=== PATIENT | male | born 1960 | race Caucasian/White ===

== ENCOUNTER 2016-12-12 15:41 | Inpatient (IN) ==
--- NOTE | 2016-12-12 16:07 | Emergency Department Note ---
Disposition Clinical Impression: Cellulitis Qualifiers: Site of cellulitis: extremity Site of cellulitis of extremity: lower extremity Laterality: left Qualified Code(s): L03.116 - Cellulitis of left lower limb Disposition: Admitted As Inpatient Condition: Good Skin/Abscess/FB HPI Chief complaint: ED Extremity Injury, Lower Stated complaint: stepped on a nail 10 days ago Source: patient Mode of arrival: EMS Limitations: no limitations Nursing Notes Reviewed: Yes Vital Signs Reviewed: Yes HPI Narrative: Patient presents to the ED complaining of worsening pain, redness and swelling to his left foot. States he stepped on a nail approximately 10 days ago while walking barefoot. He pulled the nail out but did not seek medical care until several days later on December 07 when he was seen here. He was diagnosed with cellulitis at that time after an x-ray was performed that show some soft tissue gas. He was discharged home with Augmentin, clindamycin and tramadol. States he has been taking the antibiotics and has taken all of his pain medication but is still having significant pain with increased redness and swelling to the foot. He states the red blister on his foot has now turned black. It has not been draining. He denies any fever or chills. He has not followed up yet with his PCP. He is a diabetic but has not recently checked his sugars. Home Medications Medication Instructions Recorded Confirmed Insulin NPH/REG 70/30 1 SQ DAILY 02/02/16 Metoprolol [Lopressor] 50 mg PO BID 02/02/16 02/02/16 Lisinopril [Zestril] 10 mg PO DAILY 12/07/16 12/07/16 Ranitidine HCl [Zantac] 150 mg PO 12/07/16 Previous Rx's Medication Instructions Recorded Amoxicillin/Clavulanate [Augmentin] 875 mg PO BIDWM #20 tablet 12/07/16 Clindamycin HCl 300 mg PO Q6H #40 capsule 12/07/16 Tramadol HCl [Ultram] 50 mg PO QID #8 tab 12/07/16 Allergies Allergy/AdvReac Type Severity Reaction Status Date / Time No Known Allergies Allergy Verified 02/02/16 15:30 Constitutional: Denies: fever, chills, weakness, weight change Eyes: Denies: eye pain, eye discharge, vision change ENT ED: Denies: ear pain, throat pain, dental pain, hearing loss, epistaxis, congestion, dysphagia Cardiovascular: Denies: chest pain, palpitations, dyspnea on exertion, edema, syncope Respiratory: Denies: cough, dyspnea, wheezes, hemoptysis, stridor Gastrointestinal: Denies: abdominal pain, nausea, vomiting, diarrhea, constipation, hematemesis, melena, hematochezia Genitourinary: Denies: urgency, dysuria, frequency, hematuria Musculoskeletal: Denies: back pain, neck pain, arthralgia, myalgia Integumentary: Reports: as per HPI. Denies: rash, abrasion, lesions Neurological: Denies: headache, weakness, numbness, paresthesias, confusion, abnormal gait, vertigo Psychiatric: Denies: anxiety, depression, suicidal thoughts, homicidal thoughts , auditory hallucinations, visual hallucinations Endocrine: Denies: fatigue Hematological/Lymphatic: Denies: easy bleeding, easy bruising Allergic/Immunologic: Denies: facial swelling, urticaria Past Medical History - Past Medical History Medical history: Reports: COPD, diabetes, hypertension Psychiatric history: Reports: no psych history - Social History Smoking Status: Current every day smoker Smokeless Tobacco Status: No (UNKNOWN) Alcohol use: Reports: occasionally Drug use: Reports: none Physical Exam - General Limitations: no limitations General appearance: alert, in no apparent distress - Head Head exam: atraumatic, normocephalic, normal inspection - Eye Eye exam: Present: normal appearance, PERRL, EOMI - Chest Chest inspection: Present: normal inspection, symmetric chest wall rise - Respiratory Respiratory exam: Present: normal lung sounds bilaterally - Cardiovascular Cardiovascular exam: Present: regular rate, normal rhythm, normal heart sounds - Expanded Lower Extremity Exam Knee exam: Present: normal inspection, full ROM Lower leg exam: Present: full ROM, erythema (streaking up left lower leg) Ankle exam: Present: full ROM Foot/toe exam: Present: full ROM, tenderness (lateral metatarsal area at site of lesion), swelling (mild), erythema (greatest on lateral aspect), other (5x2 cm area of blackened blister with overlying peeling skin and marginal erythema, no drainage). Absent: laceration, ecchymosis 1 - black blister, erythema, warmth, swelling Neurovascular/Tendon exam: Absent: motor deficit, sensory deficit, tendon deficit - Neurological Exam Neurological exam: Present: alert, oriented X3 - Psychiatric Psychiatric exam: Present: normal affect, normal mood - Skin Skin exam: Present: warm, dry, intact, normal color Course Course Narrative: Patient presents to ED with persistent pain and worsening swelling, redness and warmth his left foot where he had a puncture wound from a nail approximately 10 days ago. He has been on oral antibiotics with worsening symptoms. No fever or chills. Based on previously documented examine at his last visit he has increased streaking erythema. X-ray was obtained which again showed soft tissue gas but no sign of osteomyelitis. CBC shows leukocytosis with left shift. He is afebrile. Blood cultures were drawn and patient was started on IV antibiotics in the ED. Given that he has not improved with outpatient oral antibiotics he will require admission for IV antibiotics and continued management. He is also diabetic which puts him at risk for worsening infection. Spoke to the patient regarding the need for admission and he is in agreement. The hospitalist on-call, Dr. Adan, was contacted and agreed to accept the patient. Vital Signs Temperature 97.2 F L 12/12/16 15:43 Pulse Rate 90 12/12/16 15:43 Respiratory Rate 16 12/12/16 15:43 Blood Pressure 193/88 12/12/16 15:43 O2 Sat by Pulse Oximetry 99 12/12/16 15:43 Temperature 97.8 F 12/12/16 19:44 Pulse Rate 78 12/12/16 19:44 Respiratory Rate 20 12/12/16 19:44 Blood Pressure 184/81 12/12/16 19:44 O2 Sat by Pulse Oximetry 100 12/12/16 19:44 Oxygen Delivery Oxygen Delivery Room Air Skin/Abscess/Foreign Body - Differential Diagnosis Likely: abscess of skin or subcutaneous tissue, cellulitis - Medical Records Medical records reviewed: Yes I reviewed the patient's medical records. - Lab Data Lab results reviewed: Yes I reviewed the patient's lab results. Result diagrams: 12/12/16 16:50 12/12/16 16:45 Lab Results 12/12/16 12/12/16 Range/Units 16:45 16:50 WBC 14.1 H (4.3-11.1) K/mcL RBC 3.87 L (4.19-5.50) M/mcL Hgb 13.3 (12.9-16.9) g/dL Hct 37.4 L (37.5-50.1) % MCV 96.6 (83.0-100.0) fL MCH 34.4 H (28.0-33.3) pg MCHC 35.6 H (31.6-35.5) g/dL RDW 12.1 (11.5-14.5) % Plt Count 377 (140-400) K/mcL MPV 9.6 (9.4-12.4) fL Immature Gran % 3.9 (0-4) % Seg Neutrophils % 65.7 % Lymphocytes % 15.6 % Monocytes % 11.2 % Eosinophils % 2.9 % Basophils % 0.7 % Neutrophils # 9.3 H (1.6-8.9) K/mcL Lymphocytes # 2.2 (0.6-4.6) K/mcL Monocytes # 1.6 H (0.0-1.3) K/mcL Eosinophils # 0.4 (0.0-0.6) K/mcL Basophils # 0.1 (0.0-0.2) K/mcL Sodium 133 L (136-145) mEq/L Potassium 3.4 L (3.5-4.5) mEq/L Chloride 99 (98-109) mEq/L Carbon Dioxide 19 (19-29) mEq/L BUN 32 H (8-26) mg/dL Creatinine 1.45 H (0.72-1.25) mg/dL Est GFR ( Amer) > 60 (> 60) Est GFR (Non-Af Amer) 50 L (> 60) BUN/Creatinine Ratio 22 (6-26) Glucose 358 H (70-99) mg/dL Calculated Osmolality 297 (280-300) Calcium 9.6 (8.6-10.8) mg/dL - Radiology Data Radiology results reviewed: Yes I reviewed the patient's radiology results. ITS Impressions Foot X-Ray 12/12/16 16:34 IMPRESSION: Collection of soft tissue gas lateral to the 5th MTP joint redemonstrated. No radiographic evidence of osteomyelitis. D/ / Michael Wheeler MD / Michael Wheeler MD Interpreting Provider: Michael Wheeler MD
[2016-12-12] MEDS ORDERED: traMADol 50 MG TABLET PO ONE (16:33)
[2016-12-12 16:55] LABS: Basophils # 0.1 K/mcL (0.0-0.2); Basophils % 0.7 %; Eosinophils # 0.4 K/mcL (0.0-0.6); Eosinophils % 2.9 %; Hematocrit 37.4 % (37.5-50.1); Hemoglobin 13.3 g/dL (12.9-16.9); Immature Granulocytes % 3.9 % (0-4); Lymphocytes # 2.2 K/mcL (0.6-4.6); Lymphocytes % 15.6 %; Mean Corpuscular HGB Conc 35.6 g/dL (31.6-35.5); Mean Corpuscular Hemoglobin 34.4 pg (28.0-33.3); Mean Corpuscular Volume 96.6 fL (83.0-100.0); Mean Platelet Volume 9.6 fL (9.4-12.4); Monocytes # 1.6 K/mcL (0.0-1.3); Monocytes % 11.2 %; Platelet Count 377 K/mcL (140-400); Red Blood Count 3.87 M/mcL (4.19-5.50); Red Cell Distribution Width 12.1 % (11.5-14.5); Segmented Neutrophils % 65.7 %
[2016-12-12 16:57] LABS: Neutrophils # 9.3 K/mcL (1.6-8.9)
[2016-12-12] MEDS ORDERED: Clindamycin 600 MG/50 ML 600 MG/50 ML IV.SOLN IVPB ONE (17:48)
[2016-12-12 18:09] LABS: BUN/Creatinine Ratio 22 (6-26); Blood Urea Nitrogen 32 mg/dL (8-26); Calcium 9.6 mg/dL (8.6-10.8); Carbon Dioxide 19 mEq/L (19-29); Chloride 99 mEq/L (98-109); Glucose 358 mg/dL (70-99); Osmolality,Calculated 297 (280-300); Potassium 3.4 mEq/L (3.5-4.5); Sodium 133 mEq/L (136-145); eGFR For African Americans > 60 (> 60); eGFR For Non-African Americans 50 (> 60)
[2016-12-12] MEDS ORDERED: Naloxone 0.4 MG/ML INJ IVP PRN ×2 (19:12→19:29)
[2016-12-12] MEDS ORDERED: traMADol 50 MG TABLET PO SCH (21:00)
[2016-12-12] MEDS ORDERED: traMADol 50 MG TABLET PO PRN ×2 (23:23→23:28)
[2016-12-12] MEDS: Clindamycin 600 MG/50 ML 600 MG/50 ML IV.SOLN IVPB SCH (23:46)
[2016-12-13] MEDS ORDERED: Clindamycin 600 MG/50 ML 600 MG/50 ML IV.SOLN IVPB SCH (02:30)
[2016-12-13] MEDS: Clindamycin 600 MG/50 ML 600 MG/50 ML IV.SOLN IVPB SCH ×2 (08:21→16:54)
[2016-12-13] MEDS ORDERED: Famotidine 20 MG TABLET PO SCH (09:00)
[2016-12-13] MEDS ORDERED: Insulin NPH/REG 70/30 100 UNIT/ML (x5UNIT) SQ SCH ×4 (09:00→18:00)
--- NOTE | 2016-12-13 12:04 | Internal Med History&Physical ---
Date of Encounter: 12/13/16 Time of Encounter: 11:30 Assessment and Plan (1) Cellulitis Current visit: Yes Status: Acute He has been started on IV clindamycin. I will order CT of the foot to evaluate for abscess. Qualifiers: Site of cellulitis: extremity Site of cellulitis of extremity: lower extremity Laterality: left Qualified Code(s): L03.116 - Cellulitis of left lower limb (2) Azotemia Current visit: Yes Status: Acute Creatinine was normal in 2014. We will hold lisinopril and give IV fluids and recheck labs in a.m. (3) Hypokalemia Current visit: Yes Status: Acute We will give supplemental potassium and recheck labs in a.m. (4) Weight loss Current visit: Yes Status: Acute We will check TSH and order CT of chest abdomen and pelvis. (5) COPD (chronic obstructive pulmonary disease) Current visit: Yes Status: Acute We will give NicoDerm patch and check room air oximetry prior to discharge. Qualifiers: COPD type: unspecified COPD Qualified Code(s): J44.9 - Chronic obstructive pulmonary disease, unspecified Internal Medicine - H&P: HPI Chief complaint: Left foot injury Admitted From: Home Plans for Post Hospital Care: Home History of present illness: Mr. Dahl is a 56 year old male who came to emergency room stating he stepped on nail approximately 10-12 days earlier while walking barefoot in the yard. He came to emergency room December 07 for worsening pain and redness. He was given amoxicillin and clindamycin antibiotics and Ultram for pain. He did not feel improved so came back to emergency room on December 12. He was found to have leukocytosis with left shift and increasing redness of the left foot. He was admitted to Medr floor for ongoing care needs. Past Med Surg Social Fam HX - Past Medical History Medical history: COPD, diabetes, hypertension Psychiatric history: no psych history - Social History Smoking Status: Current every day smoker Packs per day: 1 Smokeless Tobacco Status: No (UNKNOWN) Alcohol use: occasionally Drug use: none Internal Medicine - H&P: Meds Insulin NPH/REG 70/30 1 SQ DAILY 02/02/16 [History] Metoprolol [Lopressor] 50 mg PO BID 02/02/16 [History] Amoxicillin/Clavulanate [Augmentin] 875 mg PO BIDWM #20 tablet 12/07/16 [Rx] Clindamycin HCl 300 mg PO Q6H #40 capsule 12/07/16 [Rx] Lisinopril [Zestril] 10 mg PO DAILY 12/07/16 [History] Ranitidine HCl [Zantac] 150 mg PO 12/07/16 [History] Tramadol HCl [Ultram] 50 mg PO QID #8 tab 12/07/16 [Rx] Allergies No Known Allergies Allergy (Verified 02/02/16 15:30) All Systems PM: A 10-system review of systems was performed and is negative for pertinent findings except as documented above in the HPI. Review of systems: Gen.: He states his weight has decreased from 152 pounds to 140 pounds in the past year, unintentional. Cardiovascular: He has history of hypertension but denies MS heart failure angina DVT or pulmonary embolus Respiratory: He has smoked since age 13 up to 2 packs per day. He had PFTs at [facility] approximately 2013 and was told he had COPD. He does not wear home oxygen. GI: He reports he has had diarrhea almost daily for 2 years. He denies melena or hematochezia. He denies disorders of his liver gallbladder or exocrine pancreas. He denies vomiting. : He has had kidney stones in the past. He was unaware he had azotemia on emergency room labs with creatinine 1.45 and estimated GFR 50. His creatinine was 1.16 on 12/17/2014. Neurologic: He denies large distribution strokes or seizures Endocrine: He was diagnosed with diabetes at age 6. He has been on insulin since then. He denies thyroid disease or hyperlipidemia Hematology/oncology: Denies blood disorders cancers or anemia Psychiatric: He takes depression medication does not know the name. He denies anxiety or other mental health issues Musk skeletal: He has DJD but denies gout or other bone joint or muscle disorders. - Constitutional Vitals: Temp Pulse Resp BP Pulse Ox 97.8 F 81 18 194/88 100 12/13/16 06:49 12/13/16 06:49 12/13/16 06:49 12/13/16 06:49 12/13/16 08:53 Exam: Gen.: He is a well-developed lean male lying in bed who appears in no acute distress HEENT: Head is atraumatic normocephalic. Eyes: EOMI. There is no scleral icterus. Mouth: Mucosa is moist. Neck: Supple and nontender. There is no thyromegaly or adenopathy noted. Heart: Regular without murmurs gallops or ectopics Lungs: No wheezes or crackles are heard. Abdomen: Soft and nontender. No masses or guarding are noted. Extremities: There is no cyanosis edema or clubbing noted. Dorsalis pedis and posttibial pulses are 1-2 over 2 bilaterally. The left foot shows erythema of the lateral half with lymphangitic streaking extending approximately 15 cm into the lower leg. There is an area of eschar approximately 2 cm maximum diameter in a shallow ulcer at the base of the left fifth toe. There is tenderness on movement of the forefoot. Neurologic: Mental status: He is talkative and a good historian. Cranial nerves : Smile is symmetric. Forehead wrinkles bilaterally. Tongue protrudes midline. EOMI. Motor: There is no pronator drift. Cerebellar: Finger to nose is intact bilaterally. Skin: Warm and dry Internal Med - H&P Results - Labs CBC & Chem 7: 12/12/16 16:50 12/12/16 16:45 - VTE Reasons for not Prescribing Prophylaxis: Treatment not Indicated - Low risk for VTE
[2016-12-13] MEDS: 0.45 % Sodium Chloride w/KCl 20 MEQ/1,000 ML MLS IVC SCH (12:15)
[2016-12-13] MEDS: Nicotine 21 MG PATCH.TD24 TD SCH (12:32)
[2016-12-13] MEDS: amLODIPine 5 MG TABLET PO SCH (12:33)
[2016-12-13] MEDS: *HR* HYDROcodone/Acet 5/325 mg TABLET PO PRN ×2 (13:36→19:32)
[2016-12-13] MEDS: Insulin LISPRO 300 UNITS/3 ML VIAL SQ SCH ×3 (14:10→19:36)
[2016-12-14] MEDS: *HR* HYDROcodone/Acet 5/325 mg TABLET PO PRN ×6 (00:49→23:30)
[2016-12-14] MEDS: 0.45 % Sodium Chloride w/KCl 20 MEQ/1,000 ML MLS IVC SCH (00:50)
[2016-12-14] MEDS: Clindamycin 600 MG/50 ML 600 MG/50 ML IV.SOLN IVPB SCH ×3 (00:51→17:07)
[2016-12-14 04:52] LABS: Basophils # 0.1 K/mcL (0.0-0.2); Basophils % 0.6 %; Eosinophils # 0.4 K/mcL (0.0-0.6); Eosinophils % 2.3 %; Hematocrit 35.2 % (37.5-50.1); Hemoglobin 12.7 g/dL (12.9-16.9); Immature Granulocytes % 3.3 % (0-4); Lymphocytes % 16.3 %; Mean Corpuscular HGB Conc 36.1 g/dL (31.6-35.5); Mean Corpuscular Hemoglobin 34.8 pg (28.0-33.3); Mean Corpuscular Volume 96.4 fL (83.0-100.0); Mean Platelet Volume 9.5 fL (9.4-12.4); Monocytes # 1.9 K/mcL (0.0-1.3); Monocytes % 10.3 %; Neutrophils # 12.2 K/mcL (1.6-8.9); Platelet Count 321 K/mcL (140-400); Red Blood Count 3.65 M/mcL (4.19-5.50); Red Cell Distribution Width 11.9 % (11.5-14.5); Segmented Neutrophils % 67.2 %
[2016-12-14 05:04] LABS: Alanine Aminotransferase 13 Units/L (0-55); Albumin 2.7 g/dL (3.5-5.0); Albumin/Globulin Ratio 0.8 (1.1-2.2); Alkaline Phosphatase 170 Units/L (38-126); Aspartate Amino Transferase 14 Units/L (5-34); BUN/Creatinine Ratio 22 (6-26); Bilirubin,Total 0.3 mg/dL (0.2-1.2); Blood Urea Nitrogen 27 mg/dL (8-26); Calcium 9.1 mg/dL (8.6-10.8); Carbon Dioxide 19 mEq/L (19-29); Chloride 100 mEq/L (98-109); Globulin 3.3 g/dL (2.4-3.5); Glucose 461 mg/dL (70-99); Magnesium 1.1 mg/dL (1.6-2.6); Osmolality,Calculated 299 (280-300); Potassium 4.7 mEq/L (3.5-4.5); Sodium 132 mEq/L (136-145); eGFR For African Americans > 60 (> 60); eGFR For Non-African Americans > 60 (> 60)
[2016-12-14 05:24] LABS: Thyroid Stimulating Hormone 2.329 mcIU/mL (0.350-4.840)
[2016-12-14] MEDS: *HR* Enoxaparin 40 MG/0.4 ML SYRINGE SQ SCH (06:15)
[2016-12-14] MEDS: Insulin LISPRO 300 UNITS/3 ML VIAL SQ SCH ×4 (07:37→19:40)
[2016-12-14] MEDS: amLODIPine 5 MG TABLET PO SCH (07:44)
[2016-12-14 09:01] LABS: Hemoglobin A1C 8.1 %
[2016-12-14] MEDS ORDERED: Magnesium Sulfate 1 GM in D5% in Water 100 ML IVPB ONE (10:31)
[2016-12-14] MEDS: Piperacillin/Tazobactam 3.375 GM in D5% in Water (Mini-Bag+) 100 ML IVPB SCH ×2 (11:58→19:22)
[2016-12-14] MEDS: Nicotine 21 MG PATCH.TD24 TD SCH (12:01)
[2016-12-14] MEDS: Insulin NPH/REG 70/30 100 UNIT/ML (x5UNIT) SQ SCH (18:05)
[2016-12-15] MEDS: Clindamycin 600 MG/50 ML 600 MG/50 ML IV.SOLN IVPB SCH ×3 (00:32→15:45)
[2016-12-15] MEDS: Piperacillin/Tazobactam 3.375 GM in D5% in Water (Mini-Bag+) 100 ML IVPB SCH ×3 (03:34→19:48)
[2016-12-15] MEDS: *HR* HYDROcodone/Acet 5/325 mg TABLET PO PRN ×4 (03:35→19:48)
[2016-12-15 05:57] LABS: Basophils # 0.1 K/mcL (0.0-0.2); Basophils % 0.3 %; Eosinophils # 0.4 K/mcL (0.0-0.6); Eosinophils % 2.4 %; Hematocrit 32.1 % (37.5-50.1); Hemoglobin 11.5 g/dL (12.9-16.9); Immature Granulocytes % 2.2 % (0-4); Lymphocytes # 2.4 K/mcL (0.6-4.6); Lymphocytes % 13.8 %; Mean Corpuscular HGB Conc 35.8 g/dL (31.6-35.5); Mean Corpuscular Hemoglobin 34.6 pg (28.0-33.3); Mean Corpuscular Volume 96.7 fL (83.0-100.0); Mean Platelet Volume 9.4 fL (9.4-12.4); Monocytes # 1.6 K/mcL (0.0-1.3); Monocytes % 8.9 %; Neutrophils # 12.6 K/mcL (1.6-8.9); Platelet Count 312 K/mcL (140-400); Red Blood Count 3.32 M/mcL (4.19-5.50); Red Cell Distribution Width 12.1 % (11.5-14.5); Segmented Neutrophils % 72.4 %
[2016-12-15 06:19] LABS: BUN/Creatinine Ratio 24 (6-26); Blood Urea Nitrogen 25 mg/dL (8-26); Calcium 9.2 mg/dL (8.6-10.8); Carbon Dioxide 23 mEq/L (19-29); Chloride 106 mEq/L (98-109); Glucose 117 mg/dL (70-99); Magnesium 1.3 mg/dL (1.6-2.6); Osmolality,Calculated 293 (280-300); Potassium 3.7 mEq/L (3.5-4.5); Sodium 139 mEq/L (136-145); eGFR For African Americans > 60 (> 60); eGFR For Non-African Americans > 60 (> 60)
[2016-12-15] MEDS: *HR* Enoxaparin 40 MG/0.4 ML SYRINGE SQ SCH (06:28)
[2016-12-15] MEDS: amLODIPine 5 MG TABLET PO SCH (08:05)
[2016-12-15] MEDS: Insulin LISPRO 300 UNITS/3 ML VIAL SQ SCH ×4 (08:05→19:57)
[2016-12-15] MEDS: Insulin NPH/REG 70/30 100 UNIT/ML (x5UNIT) SQ SCH ×2 (09:05→18:33)
[2016-12-15] MEDS: Nicotine 21 MG PATCH.TD24 TD SCH (09:24)
[2016-12-15 09:48] LABS: % Iron Saturation 19 % (20-55); Iron 34 mcg/dL (65-175); Transferrin 126 mg/dL (174-364)
[2016-12-15 10:08] LABS: Ferritin 370 ng/ml (22-275)
[2016-12-15 10:22] LABS: Folate 14.1 ng/mL (7.0-31.4)
--- NOTE | 2016-12-15 12:06 | Internal Med Progress Note ---
Date of Encounter: 12/15/16 Time of Encounter: 11:55 - Assessment and plan (1) Cellulitis Current Visit: Yes Status: Acute Assessment and plan: . Continue IV clindamycin and Zosyn. We will add lactobacillus. Anticipate discharge home tomorrow on oral antibiotics. Qualifiers: Site of cellulitis: extremity Site of cellulitis of extremity: lower extremity Laterality: left Qualified Code(s): L03.116 - Cellulitis of left lower limb (2) Azotemia Current Visit: Yes Status: Acute Assessment and plan: December 15. Resolved. Remain off lisinopril (3) Hypokalemia Current Visit: Yes Status: Acute Assessment and plan: December 15. Remains resolved. Anticipate discharge home tomorrow. (4) Weight loss Current Visit: Yes Status: Acute Assessment and plan: December 15. No significant pathology was seen on CT of chest abdomen pelvis. TSH was normal. (5) COPD (chronic obstructive pulmonary disease) Current Visit: Yes Status: Acute Assessment and plan: December 15. Continue NicoDerm patch. Will check room air oximetry in a.m. Qualifiers: COPD type: unspecified COPD Qualified Code(s): J44.9 - Chronic obstructive pulmonary disease, unspecified (6) Hypomagnesemia Current Visit: Yes Status: Acute Assessment and plan: December 15. He received 1 g magnesium sulfate IV yesterday. We will give a second dose today since magnesium level minimally increased to 1.3. (7) Hypertension Current Visit: Yes Status: Chronic Assessment and plan: December 15. He was started on doxazosin last evening. Continue amlodipine and metoprolol. Qualifiers: Hypertension type: essential hypertension Qualified Code(s): I10 - Essential (primary) hypertension - Subjective Interval history: December 15. He has no new complaints. He states the pain is gradually lessening in the left foot. - Constitutional Vitals: Temp Pulse Resp BP Pulse Ox 98.2 F 89 18 166/78 97 12/15/16 07:06 12/15/16 07:06 12/15/16 07:06 12/15/16 07:06 12/15/16 07:06 Exam: There is slight decrease in the erythema of the left forefoot. The eschar remains in place. There is still lymphangitic streaking but it is less erythematous. Reviewed his medications and lab results. Internal Medicine: Result - Labs CBC & Chem 7: 12/15/16 05:31 12/15/16 05:31 Labs: Short CBC 12/15/16 Range/Units 05:31 WBC 17.4 H (4.3-11.1) K/mcL Hgb 11.5 L (12.9-16.9) g/dL Hct 32.1 L (37.5-50.1) % Plt Count 312 (140-400) K/mcL Neutrophils # 12.6 H (1.6-8.9) K/mcL BMP 12/15/16 05:31 Sodium 139 D Potassium 3.7 D Chloride 106 Carbon Dioxide 23 BUN 25 Creatinine 1.03 Glucose 117 H Calcium 9.2 - VTE Reasons for not Prescribing Prophylaxis: Treatment not Indicated - Low risk for VTE Consult Discharge Plan - Plan Referrals: Pamella Mast, [employer] [Primary Care Provider] - 1 week
[2016-12-15] MEDS ORDERED: Magnesium Sulfate 1 GM in D5% in Water 100 ML IVPB ONE (12:10)
[2016-12-15] MEDS: Lactobacillus 1 EACH CAP.SPRINK PO SCH ×2 (13:36→19:48)
[2016-12-16] MEDS: *HR* HYDROcodone/Acet 5/325 mg TABLET PO PRN ×4 (00:19→12:39)
[2016-12-16] MEDS: Clindamycin 600 MG/50 ML 600 MG/50 ML IV.SOLN IVPB SCH ×2 (00:36→08:14)
[2016-12-16] MEDS: *HR* Enoxaparin 40 MG/0.4 ML SYRINGE SQ SCH (04:34)
[2016-12-16] MEDS: Piperacillin/Tazobactam 3.375 GM in D5% in Water (Mini-Bag+) 100 ML IVPB SCH (04:34)
[2016-12-16 06:02] LABS: Basophils # 0.1 K/mcL (0.0-0.2); Basophils % 0.3 %; Eosinophils # 0.4 K/mcL (0.0-0.6); Eosinophils % 2.3 %; Hematocrit 34.2 % (37.5-50.1); Hemoglobin 12.1 g/dL (12.9-16.9); Immature Granulocytes % 1.5 % (0-4); Lymphocytes % 12.6 %; Mean Corpuscular HGB Conc 35.4 g/dL (31.6-35.5); Mean Corpuscular Hemoglobin 34.5 pg (28.0-33.3); Mean Corpuscular Volume 97.4 fL (83.0-100.0); Mean Platelet Volume 9.3 fL (9.4-12.4); Monocytes # 1.2 K/mcL (0.0-1.3); Monocytes % 7.7 %; Platelet Count 281 K/mcL (140-400); Red Blood Count 3.51 M/mcL (4.19-5.50); Red Cell Distribution Width 12.3 % (11.5-14.5); Segmented Neutrophils % 75.6 %
[2016-12-16 06:21] LABS: BUN/Creatinine Ratio 19 (6-26); Blood Urea Nitrogen 20 mg/dL (8-26); Calcium 9.2 mg/dL (8.6-10.8); Carbon Dioxide 24 mEq/L (19-29); Chloride 101 mEq/L (98-109); Glucose 318 mg/dL (70-99); Magnesium 1.3 mg/dL (1.6-2.6); Osmolality,Calculated 299 (280-300); Sodium 137 mEq/L (136-145); eGFR For African Americans > 60 (> 60); eGFR For Non-African Americans > 60 (> 60)
[2016-12-16 06:24] VITALS: BP 175/82
[2016-12-16] MEDS: Insulin LISPRO 300 UNITS/3 ML VIAL SQ SCH (08:11)
[2016-12-16] MEDS: amLODIPine 5 MG TABLET PO SCH (08:12)
[2016-12-16] MEDS: Lactobacillus 1 EACH CAP.SPRINK PO SCH (08:12)
[2016-12-16] MEDS: Nicotine 21 MG PATCH.TD24 TD SCH ×2 (08:12→12:40)
[2016-12-16] MEDS: Insulin NPH/REG 70/30 100 UNIT/ML (x5UNIT) SQ SCH (08:16)
--- NOTE | 2016-12-16 10:15 | Discharge Summary ---
Date of Encounter: 12/16/16 Time of Encounter: 10:00 - Discharge Diagnosis (1) Cellulitis Priority: Primary Status: Acute Qualifiers: Site of cellulitis: extremity Site of cellulitis of extremity: lower extremity Laterality: left Qualified Code(s): L03.116 - Cellulitis of left lower limb (2) Azotemia Priority: Secondary Status: Resolved (3) Hypokalemia Priority: Secondary Status: Resolved (4) Weight loss Priority: Secondary Status: Acute (5) COPD (chronic obstructive pulmonary disease) Priority: Secondary Status: Acute Qualifiers: COPD type: unspecified COPD Qualified Code(s): J44.9 - Chronic obstructive pulmonary disease, unspecified (6) Hypomagnesemia Priority: Secondary Status: Acute (7) Hypertension Priority: Secondary Status: Chronic Qualifiers: Hypertension type: essential hypertension Qualified Code(s): I10 - Essential (primary) hypertension - Discharge Medications Prescriptions: HYDROcodone/Acet 5/325 mg [[place] 5-325 mg] 1 tab PO Q4HR PRN #20 tab PRN Reason: pain (#3-10) Amlodipine Besylate 10 mg PO DAILY #30 tablet Amoxicillin/Clavulanate [Augmentin] 875 mg PO BIDWM #20 tablet Clindamycin HCl 300 mg PO Q6H #40 capsule Doxazosin [Cardura] 4 mg PO HS #30 tablet Lactobacillus [Culturelle] 1 each PO BID #14 Magnesium Oxide [Mag-Ox] 400 mg PO BID #14 tablet Home Medications: Insulin NPH/REG 70/30 1 SQ DAILY 02/02/16 [History] Metoprolol [Lopressor] 50 mg PO BID 02/02/16 [History] Ranitidine HCl [Zantac] 150 mg PO 12/07/16 [History] Tramadol HCl [Ultram] 50 mg PO QID #8 tab 12/07/16 [Rx] Amlodipine Besylate 10 mg PO DAILY #30 tablet 12/16/16 [Rx] Amoxicillin/Clavulanate [Augmentin] 875 mg PO BIDWM #20 tablet 12/16/16 [Rx] Clindamycin HCl 300 mg PO Q6H #40 capsule 12/16/16 [Rx] Doxazosin [Cardura] 4 mg PO HS #30 tablet 12/16/16 [Rx] HYDROcodone/Acet 5/325 mg [[place] 5-325 mg] 1 tab PO Q4HR PRN #20 tab 12/16/16 [ Rx] Lactobacillus [Culturelle] 1 each PO BID #14 12/16/16 [Rx] Magnesium Oxide [Mag-Ox] 400 mg PO BID #14 tablet 12/16/16 [Rx] Allergies/Adverse Reactions: Allergies No Known Allergies Allergy (Verified 02/02/16 15:30) Date of admission: 12/13/16 15:06 Primary care physician: Pamella Mast CNP - Patient Status Disposition: Home Health Service Condition: Good Functional capacity at discharge: independent ambulation Overall status at discharge: patient is progressing back to baseline - Discharge Instructions Follow Up With: Pamella Mast CNP [Primary Care Provider] - 1 week - Diet and Activity Activity: resume usual activities as tolerated Diet: advance to your usual diet Hospital course: Mr. Dahl is a 56 year old male who came to emergency room stating he stepped on nail approximately 10-12 days earlier while walking barefoot in the yard. He came to emergency room December 07 for worsening pain and redness. He was given amoxicillin and clindamycin antibiotics and Ultram for pain. He did not feel improved so came back to emergency room on December 12. He was found to have leukocytosis with left shift and increasing redness of the left foot. He was admitted to [facility] for ongoing care needs. Initial orders were written by the emergency room physician. I saw him on December 13 and performed the history and physical. He was started on IV clindamycin. A CT of the foot was ordered and showed no evidence of abscess. IV Zosyn was added on December 14. WBC initially maricarmen to 18.1 but had improved to 15.9 the day of discharge. There was slight improvement in the appearance of the foot. He remained afebrile. I felt he needed to continue oral antibiotics for at least a week upon discharge. I will order home health services. He will follow with his PCP Pamella Mast CNP within 1 week. Magnesium level returned low at 1.1. He was given 1 g of magnesium sulfate IV on 2 consecutive days and the level improved to 1.3. He will use magnesium oxide 400 mg twice a day upon discharge. His PCP can monitor magnesium level. Anemia testing done during hospitalization showed iron 34, transferrin saturation 19%, transferrin 126, ferritin 370, B12 497, and folate 14.1. His hemoglobin was stable at 12.1 on the day of discharge. Lisinopril was discontinued and he was given amlodipine, metoprolol, and Cardura. The azotemia resolved and blood pressure remained in a satisfactory range. He will remain off lisinopril and continue with the Cardura and amlodipine along with metoprolol upon discharge. He will be discharged home today to follow with his PCP within one week. - Time Spent with Patient Total time spent providing and/or coordinating discharge services: - Constitutional Vitals: Temp Pulse Resp BP Pulse Ox 99.2 F 89 18 175/82 98 12/16/16 06:21 12/16/16 06:21 12/16/16 06:21 12/16/16 06:21 12/16/16 08:58 - VTE Reasons for not Prescribing Prophylaxis: Treatment not Indicated - Low risk for VTE
--- NOTE | 2016-12-16 10:24 | Physician Discharge Referral ---
Home Health/Hosp Referral Info Transfer to: Home Health Attending Provider: Loco Provider in Charge Post Discharge: PCP (Pamella Mast CNP) - Diagnosis (1) Cellulitis Priority: Primary Status: Acute (2) Azotemia Priority: Secondary Status: Resolved (3) Hypokalemia Priority: Secondary Status: Resolved (4) Weight loss Priority: Secondary Status: Acute (5) COPD (chronic obstructive pulmonary disease) Priority: Secondary Status: Acute (6) Hypomagnesemia Priority: Secondary Status: Acute (7) Hypertension Priority: Secondary Status: Chronic - Respiratory Orders Smoking Cessation: Smoking cessation has been advised. For more information, call the [place] Tobacco Quit Line at 8-177-EGDX-NOW. - Diet/Nutrition Diet/Nutrition Orders: Regular - Activity Activity Orders: Ambulate - Services Needed Following services are medically necessary services: Nursing, Home Health Aide, Physical Therapy, Occupational Therapy - Transfer Medications Prescriptions: HYDROcodone/Acet 5/325 mg [[place] 5-325 mg] 1 tab PO Q4HR PRN #20 tab PRN Reason: pain (#3-10) Amlodipine Besylate 10 mg PO DAILY #30 tablet Amoxicillin/Clavulanate [Augmentin] 875 mg PO BIDWM #20 tablet Clindamycin HCl 300 mg PO Q6H #40 capsule Doxazosin [Cardura] 4 mg PO HS #30 tablet Lactobacillus [Culturelle] 1 each PO BID #14 Magnesium Oxide [Mag-Ox] 400 mg PO BID #14 tablet Home Medications: Insulin NPH/REG 70/30 1 SQ DAILY 02/02/16 [History] Metoprolol [Lopressor] 50 mg PO BID 02/02/16 [History] Ranitidine HCl [Zantac] 150 mg PO 12/07/16 [History] Tramadol HCl [Ultram] 50 mg PO QID #8 tab 12/07/16 [Rx] Amlodipine Besylate 10 mg PO DAILY #30 tablet 12/16/16 [Rx] Amoxicillin/Clavulanate [Augmentin] 875 mg PO BIDWM #20 tablet 12/16/16 [Rx] Clindamycin HCl 300 mg PO Q6H #40 capsule 12/16/16 [Rx] Doxazosin [Cardura] 4 mg PO HS #30 tablet 12/16/16 [Rx] HYDROcodone/Acet 5/325 mg [[place] 5-325 mg] 1 tab PO Q4HR PRN #20 tab 12/16/16 [ Rx] Lactobacillus [Culturelle] 1 each PO BID #14 12/16/16 [Rx] Magnesium Oxide [Mag-Ox] 400 mg PO BID #14 tablet 12/16/16 [Rx] Allergies/Adverse Reactions: Allergies No Known Allergies Allergy (Verified 02/02/16 15:30) Certification: Further, I certify that my clinical findings support that this patient is homebound (i.e. absences from home require considerable and taxing effort and are for medical reasons or zoroastrianism services or infrequently or short duration when for other reasons) because: Homebound Reason: Leaving home requires considerable and taxing effort due to condition (Left foot cellulitis with pain on ambulation) Attestation: My signature below is to certify that this patient is under my care and that I, or nurse practitioner, or a physician's group fitness assistant department head working with me, has a face-to -face encounter with this patient.
== END 2016-12-16 16:30 | disposition home health service (06) | DRG 383 ==
LOC: EMEROOPIK 15:41 → INPPIK 15:41
PROVIDERS: ADMIT Internal Medicine; ATTEND Internal Medicine